=== PATIENT | female | born 1950 | race African-American/Black ===

== ENCOUNTER 2019-10-18 08:28 | Day surgery (SDC) ==
--- NOTE | 2019-10-16 08:49 | EKG Report ---
Test Performed on : 10/16/2019 08:47:08 AM Test Reason : PAT Blood Pressure : / mmHG Vent. Rate : 072 BPM Atrial Rate : 072 BPM P-R Int : 152 ms QRS Dur : 082 ms QT Int : 356 ms P-R-T Axes : 069 043 033 degrees QTc Int : 389 ms Normal sinus rhythm. Normal ECG When compared with ECG of 05-JUL-2012 15:14, No significant change was found Confirmed by Terrance PIERCE, Catracho Narvaez ([id number]) on 10/16/2019 6:02:32 PM
[2019-10-18] MEDS ORDERED: LR 1,000 ML ONE (09:21)
[2019-10-18] MEDS ORDERED: KEFZOL 1 GM/D5W 1 GM/50 ML IVPB ONE (09:21)
[2019-10-18] MEDS ORDERED: PEPCID ONE (09:21)
[2019-10-18] MEDS ORDERED: REGLAN ONE (09:21)
[2019-10-18] MEDS ORDERED: TRANSDERM-SCOP ONE (09:29)
[2019-10-18] MEDS ORDERED: VALIUM ONE (09:30)
[2019-10-18] MEDS ORDERED: SODIUM CHLORIDE 0.9% ONE (10:14)
[2019-10-18] MEDS ORDERED: SENSORCAINE 0.25%/EPI 1:200,000 ONE (10:14)
[2019-10-18] MEDS ORDERED: METHYLENE BLUE 0.5% ONE (10:14)
[2019-10-18] MEDS ORDERED: DIPRIVAN 1% ONE (10:15)
[2019-10-18] MEDS ORDERED: QUELICIN (DOSE) ONE (10:15)
[2019-10-18] MEDS ORDERED: FENTANYL ONE ×2 (10:15→12:06)
[2019-10-18] MEDS ORDERED: XYLOCAINE-MPF 2% ONE (10:15)
[2019-10-18] MEDS ORDERED: VERSED ONE (10:54)
[2019-10-18] MEDS ORDERED: SODIUM CHLORIDE 0.9% 10 ML ONE ×2 (11:03→11:24)
[2019-10-18] MEDS ORDERED: DECADRON ONE (11:03)
[2019-10-18] MEDS ORDERED: OFIRMEV 1000 MG/ISOTONIC SOLN 1,000 MG/100 ML BOTTLE ONE (11:03)
[2019-10-18] MEDS ORDERED: ZOFRAN ONE ×2 (11:03→13:14)
[2019-10-18] MEDS ORDERED: NORCURON ONE (11:20)
--- NOTE | 2019-10-18 13:00 | OPERATIVE NOTE ---
PROCEDURE DATE: 10/18/2019 PREOPERATIVE DIAGNOSES: 1. Right breast cancer. 2. Left breast cancer. POSTOPERATIVE DIAGNOSES: 1. Right breast cancer, upper mid right breast. 2. Left breast cancer, left lateral breast. PRINCIPAL PROCEDURE: 1. Injection of periareolar blue dye for identification of right axillary sentinel lymph node. 2. Right total mastectomy. 3. Right axillary sentinel lymph node x1. 4. Injection of periareolar blue dye for identification of left sentinel lymph node. 5. Left total mastectomy. 6. Left axillary sentinel lymph node biopsy x1. SURGEON: Nikia Torrez MD PALEOLOGIST: Dr. Bryon Escobar ANESTHESIA: General. ESTIMATED BLOOD LOSS: 100 mL. DRAINS: Two 10-flat Terrance-Hanley drains in each wound, right side and left side, for a total of 4 drains. INDICATIONS: Ms. 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 Biopsies of the right breast lesion suggested invasive right breast cancer. On exam of her left breast, there was a palpable nodule laterally, and we biopsied that using ultrasound guidance in my outpatient offices, and it also showed invasive left breast cancer. She was diagnosed with bilateral breast cancers. We discussed surgical treatment options, and she chose bilateral mastectomies. FINDINGS: The right axillary sentinel lymph node was stained blue and had high 10 second counts out of the right axilla of over 100,000. After it was removed, the counts in the right axilla was almost 0. There was only 1 sentinel lymph node removed from the right axilla. Again, the left sentinel node in the left axilla also was stained blue and had 10 second counts out of the axilla of over 100,000. Again, after it was removed, the in vivo counts in the left axilla were almost 0. On palpation of both axillas after removal of the sentinel node, there were no abnormal lymph nodes identified. We felt we did thorough mastectomies on each side. There is no evidence of any involvement of the skin or the pectoralis major muscles from these tumors. We tried to remove the skin overlying each tumor with our mastectomy incisions. This required the right mastectomy incision to be more oblique than the left mastectomy incision. PROCEDURE IN DETAIL: Dr. Escobar was present throughout the case. He actually performed the right mastectomy and sentinel lymph node biopsy, as I proceeded with the left mastectomy and sentinel lymph node biopsy. The patient underwent injection of both breasts by our nuclear medicine team with radioactive colloid to help identify the sentinel lymph nodes in both the right and left axilla prior to surgery. She went to the operating room after I marked her in holding and received general anesthesia, was intubated. Her anterior chest and axilla and upper arms were all prepped and draped in a sterile field. She received Ancef prophylactically. I began on the left side. Dr. Escobar began on the right side. I marked the incisions for the mastectomies. On the right side, the incision was made with a 10 blade scalpel. After it was marked, it was a more oblique incision so that the skin overlying the tumor, upper mid to medial aspect of the breast was taken with the specimen. The right axillary sentinel lymph node was identified before much of the dissection of the mastectomy per Dr. Escobar using the Navigator, and it was removed using forceps and scissors. This lymph node was stained blue and had 10 second counts of over 100,000, and it was sent down as the right axillary sentinel lymph node x1. He then made the incision encompassing the nipple-areolar complex and the skin overlying the breast cancer with a 10 blade scalpel, and the flaps were created superiorly to the clavicle, inferiorly to the inframammary fold, medially to the sternum, and then the breast was removed from medial to lateral off the pectoralis major muscle. Most dissection was done using the cautery. Bleeding was controlled using the cautery and forceps as needed. The specimen was removed from the axillary contents again using cautery, and it was sent to the pathologist for permanent section. Two 10- flat Terrance-Hanley drains were placed, one in the right axilla and one along the pectoralis major muscle. The wound was closed in layers. First layer was 3-0 popoff Vicryl stitches. The skin was closed with 4-0 Monocryl subcuticular stitch. Dressings were applied. As Dr. Escobar worked on the right side, I worked on the left side. I made a more transverse elliptical incision encompassing the nipple-areolar complex in the skin overlying this tumor, which was laterally and palpable. The incision was made with a 10 blade scalpel, and I created my skin flaps, again using cautery and rakes. I created it to the clavicle superiorly, medially to the sternum, and inferiorly to the inframammary fold, and then I removed the breast from medial to lateral off the pectoralis major muscles and pectoralis major minor muscles using cautery. At this point, I did dissect out the sentinel lymph node left axilla. It was stained blue, and it had high 10 second counts as described above, and it was sent down for frozen section as left axillary sentinel lymph node x1. Both sentinel lymph nodes were reported as negative, and we did not do completion dissections of the axilla lymph nodes on either side. Both wounds were irrigated before closure. I closed my wound again in layers, first layer 3-0 Popoff Vicryl stitches closed subcutaneous tissue. The skin was closed with 4-0 Monocryl subcuticular stitch. Xeroform was applied, followed by dry dressing and Medipore tape. Again, 2 Terrance-Hanley drains were left on the left side, one in the left axilla and one superficial to the muscles. These drains were brought out through separate stab incisions anterior axillary line, and they were secured to the skin with 2-0 nylon stitches. She tolerated both of these procedures well. It was sufficient with both of us working. She will go to the recovery room and be hospitalized overnight. I spoke with the family after the procedure. cc: Nikia Torrez MD
[2019-10-18] MEDS: NORCO-7.5 ONE ×2 (13:11→14:59)
[2019-10-18] MEDS ORDERED: PHENERGAN ONE (13:22)
[2019-10-18] MEDS ORDERED: ZOFRAN IV PRN (13:52)
[2019-10-18] MEDS: NORCO-7.5 PO SCH ×2 (15:01→22:34)
[2019-10-18] MEDS: MOTRIN PO SCH (18:39)
[2019-10-18] MEDS ORDERED: TENORMIN PO SCH (21:45)
[2019-10-18] MEDS: TYLENOL PO SCH (22:34)
[2019-10-18 22:48] LABS: URINE SOURCE CLEAN CATCH
[2019-10-18 23:11] LABS: UR EPITHELIAL CELLS <10 /HPF (<10); URINE BACTERIA NEGATIVE /HPF; URINE RBC <10 /HPF (<10); URINE WBC <10 /HPF (<10)
[2019-10-18 23:12] LABS: BILIRUBIN URINE NEGATIVE (NEGATIVE); BLOOD URINE NEGATIVE (NEGATIVE); COLOR YELLOW; GLUCOSE URINE TRACE mg/dL (NEGATIVE); KETONE URINE NEGATIVE (NEGATIVE); LEUKOCYTES URINE NEGATIVE (NEGATIVE); NITRITE URINE NEGATIVE (NEGATIVE); PH URINE 6.5; PROTEIN URINE NEGATIVE (NEGATIVE); SP GRAVITY URINE 1.009; TURBIDITY URINE CLEAR (CLEAR); UROBILINOGEN URINE NORMAL (NORMAL)
[2019-10-19] MEDS: MOTRIN PO SCH ×2 (05:22→08:57)
[2019-10-19] MEDS: NORCO-7.5 PO SCH ×2 (05:22→08:55)
[2019-10-19] MEDS: TYLENOL PO SCH (06:50)
[2019-10-19 07:15] VITALS: BP 95/56
[2019-10-19] MEDS ORDERED: PERIDEX MT SCH (09:00)
[2019-10-19] MEDS ORDERED: PRILOSEC PO SCH (09:00)
--- NOTE | 2019-10-19 10:56 | DISCHARGE SUMMARY ---
ADMISSION DATE: 10/18/2019 DISCHARGE DATE: 10/19/2019 PREOPERATIVE DIAGNOSES: 1. Right breast cancer. 2. Left breast cancer. DISCHARGE DIAGNOSIS: 1. Right breast cancer. 2. Left breast cancer. PRINCIPAL PROCEDURE: Bilateral total mastectomies with right and left axillary sentinel lymph node biopsies on 10/18/2019. DISCHARGE ACTIVITY: Full. DISCHARGE DIET: Regular. DISCHARGE DISPOSITION: She will return to our outpatient offices this coming Wednesday for wound check. DISCHARGE MEDICATIONS: She is to return to her home medications. HOSPITAL COURSE: Ms Senia Waters is a 69-year-old female, who used to be a GI nurse here at our hospital. Recently, she underwent bilateral breast screening mammograms, which showed an abnormal mammogram of her right breast. But on exam, I also felt a left breast nodule. We biopsied both breasts and both came back invasive cancer. We discussed surgical treatment options and she chose total mastectomies. The patient was admitted on the day of surgery, went to the operating room and underwent bilateral total mastectomies with right and left axillary sentinel lymph node biopsies. Frozen section of the sentinel lymph nodes were negative and completion dissection of the axilla were not performed. We did use 4 VIRGIL drains at the time of surgery and then she went to the recovery room and was hospital hospitalized on the [address] [place] [address] Gandhi. On postop day 1, she had no significant hematoma underneath her skin flaps. The drainage from the her VIRGIL drains was satisfactory and it was felt safe to discharge her to her home under the care of her son and family. She knows to contact me if she has any problems. Otherwise, I will see her this coming Wednesday so that we can remove some of her drains. cc: MD Kenya Sandoval MD
== END 2019-10-19 12:49 | disposition home or self-care (01) ==
LOC: PAT 08:28 → 4N 08:28 → OPS 08:28
PROVIDERS: ATTEND Surgery